=== PATIENT | female | born 1990 ===

== ENCOUNTER → 2017-02-22 | Outpatient (CLI) | payer OTHER ==
[2017-02-25 12:39] LABS: QUANTIF TB AG-NIL 0.03 IU/ML; QUANTIFERON NIL 0.08 IU/ML
== END | disposition home or self-care (01) ==
LOC: C.LABSPEC 13:46
PROVIDERS: ATTEND Physician Assistant
DX: R76.11 Nonspecific reaction to tuberculin skin test without active tuberculosis (principal)